=== PATIENT | female | born 1980 | race Caucasian/White ===

== ENCOUNTER 2016-07-26 05:55 | Inpatient (IN) | payer OTHER ==
[~2016-07-26] VITALS: Ht 162.6 cm; Wt 70.3 kg
[2016-07-26] VITALS (15 sets, daily range): BP systolic 88–121; RESP 9–18; TEMP 96.8–98.3; Ht 162.6 cm; Wt 70.3 kg
[2016-07-26] MEDS ORDERED: CEFAZOLIN (LD/OB) 100 ML IV ONE (06:10)
[2016-07-26] MEDS ORDERED: LIDOCAINE 1% BUFFERED 1 ML SYR INTRADERM PRN (06:10)
[2016-07-26] MEDS ORDERED: METOCLOPRAMIDE 10 MG/2 ML VIAL IV PUSH ONE (06:10)
[2016-07-26] MEDS ORDERED: LACT RINGERS 1,000 ML IV SCH ×2 (06:10→08:20)
[2016-07-26] MEDS ORDERED: FAMOTIDINE 20 MG INJ IV ONE (06:10)
[2016-07-26] MEDS ORDERED: ONDANSETRON 4 MG VIAL IV PRN ×3 (07:35→08:20)
[2016-07-26] MEDS ORDERED: NALOXONE 0.4 MG/ML AMP IV PRN (07:35)
[2016-07-26] MEDS ORDERED: DIPHENHYDRAMINE 50 MG/ML VIAL IV PRN (07:35)
[2016-07-26] MEDS ORDERED: MORPHINE 4 MG/ML SYR IV PRN ×2 (07:35)
[2016-07-26] MEDS ORDERED: OXYCODONE 5 MG TAB PO PRN (07:35)
[2016-07-26] MEDS ORDERED: MEPERIDINE 25 MG/ML IV PRN (07:35)
[2016-07-26] MEDS ORDERED: MORPHINE 2 MG/ML SYR IV PRN ×2 (07:35)
[2016-07-26] MEDS ORDERED: PROMETHAZINE 25 MG/ML VIAL IV PRN (07:35)
[2016-07-26] MEDS ORDERED: DILAUDID 1 MG/ML AMP IV PRN (07:35)
[2016-07-26] MEDS ORDERED: SALINE FLUSH 10 ML FLUSH PRN (07:35)
[2016-07-26] MEDS ORDERED: BUTORPHANOL 1 MG/ML VIAL IV PRN (07:35)
[2016-07-26] MEDS ORDERED: OXYTOCIN 15 UNITS/250 ML NS 250 ML IV SCH (08:20)
[2016-07-26] MEDS ORDERED: TDaP 0.5 ML VIAL IM.VACC ONE (08:20)
[2016-07-26] MEDS ORDERED: MEASLES,MUMPS,RUBELLA VAC SUBQ.VACC ONE (08:20)
[2016-07-26] MEDS ORDERED: MAG HYDROX 30 ML UDC PO PRN (08:20)
[2016-07-26] MEDS: MISOPROSTOL 200 MCG TAB PO SCH ×2 (08:59→11:11)
[2016-07-26] MEDS: DOCUSATE SOD 100 MG CAP PO SCH (09:00)
[2016-07-26] MEDS: SALINE FLUSH 10 ML FLUSH SCH (09:38)
[2016-07-26] MEDS ORDERED: FENTANYL 100 MCG/2 ML AMP IV ONE (10:39)
[2016-07-26] MEDS ORDERED: OXYTOCIN 10 UNITS/ML VIAL IV ONE (10:39)
[2016-07-26] MEDS ORDERED: MIDAZOLAM 2 MG/2 ML INJ IV ONE (10:39)
[2016-07-26] MEDS ORDERED: PHENYLEPHRINE 10 MG/ML VIAL IV ONE (10:39)
[2016-07-26] MEDS ORDERED: MORPHINE PF 0.5 MG/ML 10 ML IV ONE (10:39)
[2016-07-26] MEDS: KETOROLAC 30 MG/ML VIAL IV SCH ×2 (11:11→17:55)
[2016-07-26] MEDS ORDERED: LIDOCAINE 1% 30 ML PF ONE (12:23)
[2016-07-27] MEDS: KETOROLAC 30 MG/ML VIAL IV SCH ×2 (00:06→06:10)
[2016-07-27] MEDS: SODIUM CHLORIDE 0.9% FLUSH BAG 500 ML IV SCH (06:00)
[2016-07-27 06:06] VITALS: BP_SYST 109; RESP 18; TEMP 97.8
[2016-07-27] MEDS: SALINE FLUSH 10 ML FLUSH SCH ×3 (09:25→20:00)
[2016-07-27] MEDS: DOCUSATE SOD 100 MG CAP PO SCH (09:25)
[2016-07-27 09:35] VITALS: BP_SYST 103; RESP 18; TEMP 97.4
[2016-07-27] MEDS: Ibuprofen 600 MG TAB PO SCH ×2 (11:36→18:21)
[2016-07-27 18:10] VITALS: BP_SYST 112; TEMP 98.3
[2016-07-27 18:11] VITALS: RESP 16
[2016-07-28] MEDS: Ibuprofen 600 MG TAB PO SCH ×3 (00:06→11:44)
[2016-07-28 05:07] VITALS: BP_SYST 108; RESP 16; TEMP 97.8
[2016-07-28] MEDS: SALINE FLUSH 10 ML FLUSH SCH (07:31)
[2016-07-28] MEDS: SODIUM CHLORIDE 0.9% FLUSH BAG 500 ML IV SCH (07:32)
[2016-07-28] MEDS: DOCUSATE SOD 100 MG CAP PO SCH (09:00)
[2016-07-28 09:11] VITALS: BP_SYST 120; RESP 16; TEMP 97.6
[2016-07-28 13:47] VITALS: BP_SYST 120; RESP 16; TEMP 97.6
== END 2016-07-28 15:16 | disposition home or self-care (01) | DRG 766 ==
LOC: LD 05:55 → OB 10:45
PROVIDERS: ADMIT Obstetrics & Gynecology Reproductive Endocrinology; ATTEND Obstetrics & Gynecology Reproductive Endocrinology
PROC: 10D00Z1 Extraction of Products of Conception, Low, Open Approach (ICD-10-PCS; principal; 2016-07-26)
PROC: 0UL70CZ Occlusion of Bilateral Fallopian Tubes with Extraluminal Device, Open Approach (ICD-10-PCS; 2016-07-26)
CPT/HCPCS: 82803; 85025